=== PATIENT | male | born 2000 | race Two or more races ===

== ENCOUNTER 2018-01-16 04:28 | Emergency (ER) | payer BC ==
[~2018-01-16] VITALS: Ht 177.8 cm; Wt 99.8 kg
[2018-01-16] MEDS ORDERED: IBUPROFEN 800 MG TAB PO ONE (07:15)
[2018-01-16 07:28] LABS: Basophils # (auto) 0.1 uL; Basophils % (auto) 0.7 % (0.0-2.0); Eosinophils # (auto) 0.3 uL; Eosinophils % (auto) 2.9 % (0.0-7.0); Hemoglobin 16.1 g/dL (13.5-17.5); Lymphocytes # (auto) 1.9 uL; Lymphocytes % (auto) 19.8 % (10.0-50.0); Mean Corpuscular Hgb Conc. 34.2 g/dL (32.0-36.0); Monocytes # (auto) 0.8 uL; Monocytes % (auto) 8.8 % (0.0-12.0); Neutrophils # (auto) 6.4 uL; Neutrophils % (auto) 67.8 % (37.0-80.0); Nucleated Red Blood Cells % 0.4 %; Platelet Count (auto) 269 10^3/uL (140-450); Red Blood Cells 5.96 10^6/uL (4.5-5.90); Red Cell Distribution Width 13.7 % (11.8-14.3); White Blood Cell 9.4 10^3/uL (4.4-10.8)
[2018-01-16 07:57] LABS: Alanine Aminotransferase 134 U/L (16-61); Albumin 4.3 g/dL (3.4-5.0); Alkaline Phosphatase 90 U/L (45-117); Anion Gap 7 (5-15); Aspartate Aminotransferase 48 U/L (15-37); BUN/Creatinine Ratio 16.5; Bilirubin, Total 0.4 mg/dL (0.2-1.0); Blood Urea Nitrogen 17 mg/dL (7-18); Calcium 9.3 mg/dL (8.5-10.1); Carbon Dioxide 27 mmol/L (21-32); Chloride 105 mmol/L (98-107); GFR African American 120 mL/min; GFR Non-African American 99 mL/min; Glucose 93 mg/dL (74-106); Potassium 4.2 mmol/L (3.5-5.1); Sodium 139 mmol/L (136-145); Total Protein 8.7 g/dL (6.4-8.2)
[2018-01-16 07:59] VITALS: BP 137/78
== END 2018-01-16 09:02 | disposition home or self-care (01) ==
LOC: ER 04:31
DX: R07.89 Other chest pain (principal)
CPT/HCPCS: 36415; 71046; 80053; 84484; 85025; 93005